=== PATIENT | male | born 2000 | race Caucasian/White ===

== ENCOUNTER 2024-03-17 14:22 | Emergency (ER) | payer OTHER ==
--- NOTE | 2024-03-17 18:07 | ED Physician Documentation ---
PD HPI UPPER EXT INJURY - Stated complaint Stated Complaint: ANIMAL BITE, LT FINGER - Chief complaint Chief Complaint: Laceration - History obtained from History obtained from: Patient - History of Present Illness Location: Left, Finger Type of injury: Other (bit by small mouse looking animal but was bigger than mouse and had short tail (not likely rat). he thought maybe vole. His cat brought the animal too him and it was not fully , so bit at his finger as he reached for it.) Timing - onset: Today Timing - details: Abrupt onset (deep enough to draw blood for several drops.) Worsened by: Palpating. No: Moving Associated symptoms: No: Weakness, Numbness Similar symptoms before: Has not had sx before Review of Systems Neurologic: denies: Focal weakness, Numbness PD PAST MEDICAL HISTORY - Past Medical History Past Medical History: Yes Psych: Anxiety - Past Surgical History Past Surgical History: No - Present Medications Home Medications: Ambulatory Orders Medication Instructions Recorded Confirmed Amox/Clav 875/125 [Augmentin] 1 each PO BID #10 tablet 03/17/24 Buspirone HCl 15 mg ORAL BID 03/17/24 03/17/24 Fluoxetine HCl [Prozac] 80 mg PO DAILY 03/17/24 03/17/24 Mirtazapine 15 mg ORAL HS 03/17/24 03/17/24 Propranolol [Inderal] 10 mg PO BID 03/17/24 03/17/24 lamoTRIgine [Lamictal] 300 mg PO DAILY PM 03/17/24 03/17/24 - Allergies Allergies/Adverse Reactions: Allergies Allergy/AdvReac Type Severity Reaction Status Date / Time No Known Drug Allergies Allergy Verified 03/17/24 14:25 - Social History Does the pt smoke?: No Smoking Status: Never smoker Does the pt drink ETOH?: No Does the pt have substance abuse?: No - Immunizations Immunizations are current?: No Immunizations: TDAP >10years/unknown - POLST Patient has POLST: No PD ED PE NORMAL - Vitals Vital signs reviewed: Yes - General General: Alert and oriented X 3, No acute distress, Well developed/nourished - Derm Derm: Normal color, Warm and dry - Extremities Extremities: Other (minimal puncture bite wound at tip of left index finger without FB nor current bleeding.. ) - Neuro Neuro: No motor deficit, No sensory deficit Results - Vitals Vitals: Oxygen O2 Source Room air PD Medical Decision Making - ED course Complexity details: considered differential (We talked about last tetanus and usually updated at 10 years. He believes it was 2-3 year sago. Also no rabies ecept bats on [facility], so no need for rabies vaccine. To watch for reguar infections. ), d/w patient Departure - Departure Disposition: 01 Home, Self Care Clinical Impression: Bitten by other rodent, initial encounter Condition: Stable Record reviewed to determine appropriate education?: Yes Follow-Up: Nadine Joseph ARNP [Primary Care Provider] - Prescriptions: Amox/Clav 875/125 [Augmentin] 1 each PO BID #10 tablet Comments: There is no rabies and wild animals here on the [facility] area except in bats. As such we do not need to worry about rabies with your bite. There is still the concern for regular infections and with a bowl, there would be concern for tetanus as well. It is good that you are up-to-date on your tetanus. We can watch the site for development of any infection such as redness swelling or purulence. It could even be increasing pain over the next day or 2. If these develop, then start the Augmentin antibiotic. Otherwise just keep the area clean and some ointment to it and Tylenol ibuprofen if needed for pains. Forms: PCP List Discharge Date/Time: 03/17/24 18:17
[2024-03-17 18:17] VITALS: BP 119/72; O2SAT 99
== END 2024-03-17 18:17 | disposition home or self-care (01) ==
LOC: ED 14:22
DX: S61.231A Puncture wound without foreign body of left index finger without damage to nail, initial encounter (principal); W53.01XA Bitten by mouse, initial encounter
CPT/HCPCS: 99282; 99283